=== PATIENT | female | born 1970 | race Caucasian/White ===

== ENCOUNTER 2021-12-04 04:44 | Emergency (ER) | payer BC ==
[2021-12-04] MEDS ORDERED: Dexamethasone 10 MG/ML VIAL ONE (05:16)
[2021-12-04] MEDS ORDERED: Famotidine 20 MG TAB ONE (05:16)
[2021-12-04] MEDS ORDERED: diphenhydrAMINE 25 MG CAP ONE (05:16)
== END 2021-12-04 05:30 | disposition home or self-care (01) ==
LOC: BURERS 04:44
DX: L27.0 Generalized skin eruption due to drugs and medicaments taken internally (principal); T47.1X5A Adverse effect of other antacids and anti-gastric-secretion drugs, initial encounter; I10 Essential (primary) hypertension
CPT/HCPCS: 96372; 99283; J1100